=== PATIENT | female | born 2000 | race African-American/Black ===

== ENCOUNTER 2021-12-01 08:26 | Emergency (ER) | payer MEDICAID, OTHER ==
[~2021-12-01] VITALS: Ht 165.1 cm; Wt 79.0 kg
[2021-12-01] MEDS ORDERED: ACETAMINOPHEN 325 MG TAB PO ONE (08:45)
[2021-12-01 10:30] VITALS: BP 90/46
== END 2021-12-01 11:43 | disposition home or self-care (01) ==
LOC: EDBD 08:26 → ER 08:26
DX: G40.909 Epilepsy, unspecified, not intractable, without status epilepticus (principal); Z20.822 Contact with and (suspected) exposure to COVID-19
CPT/HCPCS: 36415; 82962; 93005